=== PATIENT | male | born 1980 | race Caucasian/White ===

== ENCOUNTER 2020-02-01 16:18 | Emergency (ER) | payer BC ==
[2020-02-01 16:28] VITALS: BP 142/95; PULSE 66
[2020-02-01] MEDS ORDERED: Sodium Chloride 0.9% 10 ML Syringe FLUSH PRN (16:28)
--- NOTE | 2020-02-01 16:40 | EDM.PDOC ---
ED HPI GENERAL MEDICAL PROBLEM - General Chief Complaint: Chest Pain Stated Complaint: FINGERS TINGLING PAIN IN CHEST Time Seen by Provider: 02/01/20 16:23 Source of Information: Reports: Patient, RN Notes Reviewed History Limitations: Reports: No Limitations - History of Present Illness INITIAL COMMENTS - FREE TEXT/NARRATIVE: Patient is a 39-year-old male who presents to the ED for evaluation of some chest pain. Patient notes he has had some intermittent pain to the center of his chest for the past couple days. He states however he was driving to work about an hour ago, and noted that there was more of a chest pressure component, he felt like his chest was in a vice. He states that this is around a 3 out of 10 at the time of triage. He notes that he had some tingling or numbness into his left fingertips and pain that radiate up into his left side of his jaw. He also felt mild shortness of breath and nauseated when symptoms stroke. He is not complaining of any pain, nausea, shortness of breath now. Patient notes that he felt hot and diaphoretic when symptoms started. He did not take any medications at home, and brought himself to the ER for evaluation. He denies any cardiac or lung history. He states that he "just does not feel right" and he has been trying to quit smoking, he has been using Nicorette gum, he states that he smoked 5 cigarettes/day roughly for 30 years, he is been trying to quit for the past week or 2. He notes that he drinks 2-3 mixed drinks a night, but not a lot more than that, he states he used to use illicit drugs but he has not used any in over 10 years. He denies any other recent illness, and he has no trauma to the area that he can account for. Patient states he does not have a regular care provider, but has seen Dr. Ellington in the past. Middle Chest Pain Score (Numeric/FACES): 3 - Related Data Allergies Allergy/AdvReac Type Severity Reaction Status Date / Time No Known Allergies Allergy Verified 02/01/20 16:28 Home Meds: Home Meds . [No Known Home Meds] 02/01/20 [History] Past Medical History - Past Health History Medical/Surgical History: Denies Medical/Surgical History - Infectious Disease History Infectious Disease History: Reports: Chicken Pox Social & Family History - Tobacco Use Smoking Status *Q: Current Every Day Smoker Years of Tobacco use: 25 Packs/Tins Daily: 0.2 Tobacco Use Comment: Pt states that he is trying to quit, using nicorette gum - Caffeine Use Caffeine Use: Reports: None - Alcohol Use Alcohol Use History: Yes Days Per Week of Alcohol Use: 5 Number of Drinks Per Day: 3 (2-3 mixed drinks nightly after work) Total Drinks Per Week: 15 - Recreational Drug Use Recreational Drug Use: No ED ROS GENERAL - Review of Systems Review Of Systems: See Below Constitutional: Reports: Diaphoresis. Denies: Fever, Chills Respiratory: Reports: Shortness of Breath Cardiovascular: Reports: Chest Pain, Lightheadedness. Denies: Edema, Palpitations GI/Abdominal: Reports: Nausea. Denies: Abdominal Pain, Constipation, Diarrhea, Vomiting Musculoskeletal: Reports: Arm Pain (Left arm tingling/numbness), Other (L sided jaw pain) Skin: Denies: Bruising Neurological: Reports: Numbness, Tingling ED EXAM, GENERAL - Physical Exam Exam: See Below Exam Limited By: No Limitations General Appearance: Alert, WD/WN, No Apparent Distress, Anxious Eye Exam: Bilateral Eye: EOMI, Normal Inspection, PERRL Ears: Normal External Exam Nose: Normal Inspection Throat/Mouth: Normal Inspection, Normal Lips, Normal Teeth, Normal Gums, Normal Oropharynx, Normal Voice, No Airway Compromise Head: Atraumatic, Normocephalic Neck: Normal Inspection Respiratory/Chest: No Respiratory Distress, Lungs Clear, Normal Breath Sounds, No Accessory Muscle Use, Chest Non-Tender Cardiovascular: Normal Peripheral Pulses, Regular Rate, Rhythm, No Edema, No Murmur Peripheral Pulses: 3+: Radial (L), Radial (R) GI/Abdominal: Normal Bowel Sounds, Soft, Non-Tender, No Distention, No Mass Extremities: Normal Inspection, Normal Range of Motion, Normal Capillary Refill Neurological: Alert, Oriented, CN II-XII Intact (grossly), Normal Cognition, No Motor/Sensory Deficits Psychiatric: Normal Affect, Normal Mood, Anxious (slightly anxious in appearance , he states he is worried d/t chest pain) Skin Exam: Warm, Dry, Intact, Normal Color, No Rash EKG INTERPRETATION EKG Date: 02/01/20 Time: 16:34 Rhythm: NSR Rate (Beats/Min): 68 [place]: Normal P-Wave: Present QRS: Normal ST-T: Normal QT: Normal Comparison: NA - No Prior EKG EKG Interpretation Comments: no acute ischemic change noted. Reviewed by myself and Dr. nKight. Course - Vital Signs Last Recorded V/S: Last Vital Signs Temp 97 F 02/01/20 16:23 Pulse 66 02/01/20 16:23 Resp 16 02/01/20 16:23 BP 142/95 H 02/01/20 16:23 Pulse Ox 99 02/01/20 16:23 - Orders/Labs/Meds Orders: Active Orders 24 hr Category Date Time Status EKG Documentation Completion [RC] STAT Care 02/01/20 16:28 Ordered Peripheral IV Care [RC] . DIRECTED Care 02/01/20 16:29 Ordered Sodium Chloride 0.9% [Saline Flush] Med 02/01/20 16:28 Ordered 10 ml FLUSH ASDIRECTED PRN Peripheral IV Insertion Adult [OM.PC] Stat Oth 02/01/20 16:28 Ordered Medication Orders Sodium Chloride (Saline Flush) 10 ml FLUSH ASDIRECTED PRN PRN Reason: Keep Vein Open Last Admin: 02/01/20 16:43 Dose: 10 ml Labs: Laboratory Tests 02/01/20 02/01/20 02/01/20 Range/Units 16:43 16:43 16:43 WBC 6.49 (4.23-9.07) K/mm3 RBC 5.06 (4.63-6.08) M/mm3 Hgb 15.7 (13.7-17.5) gm/dl Hct 45.6 (40.1-51.0) % MCV 90.1 (79.0-92.2) fl MCH 31.0 (25.7-32.2) pg MCHC 34.4 (32.2-35.5) g/dl RDW Std Deviation 42.4 (35.1-43.9) fL Plt Count 287 (163-337) K/mm3 MPV 9.0 L (9.4-12.3) fl Neutrophils % (Manual) 63 H (40-60) % Band Neutrophils % 0 (0-10) % Lymphocytes % (Manual) 29 (20-40) % Atypical Lymphs % 0 % Monocytes % (Manual) 6 (2-10) % Eosinophils % (Manual) 1 (0.8-7.0) % Basophils % (Manual) 1 (0.2-1.2) Platelet Estimate Adequate RBC Morph Comment Normal PT 11.9 (9.7-12.0) SECONDS INR 1.10 APTT 27 (22-31) SECONDS Sodium 141 (136-145) mEq/L Potassium 4.0 (3.5-5.1) mEq/L Chloride 105 (98-107) mEq/L Carbon Dioxide 30 (21-32) mEq/L Anion Gap 10.0 (5-15) BUN 23 H (7-18) mg/dL Creatinine 1.1 (0.7-1.3) mg/dL Est Cr Clr Drug Dosing 79.75 mL/min Estimated GFR (MDRD) > 60 (>60) mL/min BUN/Creatinine Ratio 20.9 H (14-18) Glucose 108 H (74-106) mg/dL Calcium 9.1 (8.5-10.1) mg/dL Magnesium 1.8 (1.8-2.4) mg/dl Total Bilirubin 0.6 (0.2-1.0) mg/dL AST 11 L (15-37) U/L ALT 27 (16-63) U/L Alkaline Phosphatase 61 (46-116) U/L Troponin I < 0.017 (0.00-0.056) ng/mL NT-Pro-B Natriuret Pep (0-125) pg/mL Total Protein 7.4 (6.4-8.2) g/dl Albumin 4.1 (3.4-5.0) g/dl Globulin 3.3 gm/dL Albumin/Globulin Ratio 1.2 (1-2) 02/01/20 Range/Units 16:43 WBC (4.23-9.07) K/mm3 RBC (4.63-6.08) M/mm3 Hgb (13.7-17.5) gm/dl Hct (40.1-51.0) % MCV (79.0-92.2) fl MCH (25.7-32.2) pg MCHC (32.2-35.5) g/dl RDW Std Deviation (35.1-43.9) fL Plt Count (163-337) K/mm3 MPV (9.4-12.3) fl Neutrophils % (Manual) (40-60) % Band Neutrophils % (0-10) % Lymphocytes % (Manual) (20-40) % Atypical Lymphs % % Monocytes % (Manual) (2-10) % Eosinophils % (Manual) (0.8-7.0) % Basophils % (Manual) (0.2-1.2) Platelet Estimate RBC Morph Comment PT (9.7-12.0) SECONDS INR APTT (22-31) SECONDS Sodium (136-145) mEq/L Potassium (3.5-5.1) mEq/L Chloride (98-107) mEq/L Carbon Dioxide (21-32) mEq/L Anion Gap (5-15) BUN (7-18) mg/dL Creatinine (0.7-1.3) mg/dL Est Cr Clr Drug Dosing mL/min Estimated GFR (MDRD) (>60) mL/min BUN/Creatinine Ratio (14-18) Glucose (74-106) mg/dL Calcium (8.5-10.1) mg/dL Magnesium (1.8-2.4) mg/dl Total Bilirubin (0.2-1.0) mg/dL AST (15-37) U/L ALT (16-63) U/L Alkaline Phosphatase (46-116) U/L Troponin I (0.00-0.056) ng/mL NT-Pro-B Natriuret Pep 27 (0-125) pg/mL Total Protein (6.4-8.2) g/dl Albumin (3.4-5.0) g/dl Globulin gm/dL Albumin/Globulin Ratio (1-2) Meds: Medications Generic Name Dose Route Start Last Admin Trade Name Freq PRN Reason Stop Dose Admin Sodium Chloride 10 ml 02/01/20 16:28 02/01/20 16:43 Saline Flush FLUSH 10 ml ASDIRECTED PRN Administration Keep Vein Open - Re-Assessments/Exams Free Text/Narrative Re-Assessment/Exam: 02/01/20 16:54 Patient presents to the ED for the evaluation of his chest pain. Did order EKG , chest x-ray, and basic lab work to include CBC, CMP, troponin, coag studies and BNP for initial evaluation. IV will be placed as well. Initial EKG demonstrates no obvious sign of acute ischemia, reviewed by myself and Dr. Knight. 02/01/20 18:21 Laboratory evaluation demonstrates no acute abnormalities, troponin is negative at this time. Patient is still pain-free, results were discussed with him, I will give him an outpatient order for a stress test and have him follow-up with Dr. Ellington for results. He is okay with this plan, I did discuss worrisome signs and symptoms for when to return, and he does agree to return to the ER if chest pain returns or worsens. Departure - Departure Time of Disposition: 18:22 Disposition: Home, Self-Care 01 Condition: Fair Clinical Impression: Sensation of chest pressure, Atypical chest pain Instructions: Exercise Stress Test, [id number] Referrals: PCP,None [Primary Care Provider] - Forms: ED Department Discharge Additional Instructions: You were evaluated in the ER today for your chest pain. Your cardiac work-up was within normal limits at today's visit, you are not suffering from acute heart attack at today's visit. Please try to refrain from the monster type energy drinks, as these have a lot of caffeine/vitamins/minerals that could be causing some of your issues. You have been provided with an outpatient order for a cardiac stress test, our facility will call you to schedule this appointment. You will need to follow- up with Dr. Ellington for results after the appointment has taken place. Recommend you give this a few business days so he may obtain the results of your stress test. Please return to the ER at any time if your symptoms change or worsen. Sepsis Event Note - Evaluation Sepsis Screening Result: No Definite Risk - Focused Exam Vital Signs: Vital Signs Temp Pulse Resp BP Pulse Ox 02/01/20 16:23 97 F 66 16 142/95 H 99 Date Exam was Performed: 02/01/20 Time Exam was Performed: 18:21 - My Orders Last 24 Hours: My Active Orders 02/01/20 16:28 EKG Documentation Completion [RC] STAT Sodium Chloride 0.9% [Saline Flush] 10 ml FLUSH ASDIRECTED PRN Peripheral IV Insertion Adult [OM.PC] Stat 02/01/20 16:29 Peripheral IV Care [RC] . DIRECTED - Assessment/Plan Last 24 Hours: My Active Orders 02/01/20 16:28 EKG Documentation Completion [RC] STAT Sodium Chloride 0.9% [Saline Flush] 10 ml FLUSH ASDIRECTED PRN Peripheral IV Insertion Adult [OM.PC] Stat 02/01/20 16:29 Peripheral IV Care [RC] . DIRECTED
--- NOTE | 2020-02-01 17:42 | CR ---
Chest: PA and lateral views of the chest were obtained. Comparison: No previous chest x-ray is available. Heart size and mediastinum are normal. Lungs are clear with no acute parenchymal change. No acute osseous finding is seen. Impression: 1. Nothing acute is seen on 2 view chest x-ray. Diagnostic code #1 This report was dictated in [place] Standard Time
== END 2020-02-01 18:35 | disposition home or self-care (01) ==
LOC: JD.ED 16:18
DX: R07.89 Other chest pain (principal); F17.210 Nicotine dependence, cigarettes, uncomplicated
CPT/HCPCS: 36415; 71046; 71046-26; 80053; 83735; 83880; 84484; 85007; 85027; 85610; 85730; 93005; 93010; 99284; 99285-25